=== PATIENT | female | born 1960 | race Caucasian/White ===

== ENCOUNTER → 2017-07-28 | Outpatient (REF) | payer OTHER | LOC: M LABNEURO 14:49 | PROVIDERS: ATTEND Psychiatry & Neurology Neurology | DX: R51 Headache (principal) ==

== ENCOUNTER → 2019-10-19 | Outpatient (REF) | payer OTHER | LOC: M LAB LCGH 12:57 | PROVIDERS: ATTEND Physician Assistant | DX: L82.1 Other seborrheic keratosis (principal) ==

== ENCOUNTER → 2021-09-15 | Outpatient (REF) | payer OTHER | LOC: M LAB REF 14:29 | PROVIDERS: ATTEND Physician Assistant | DX: L73.8 Other specified follicular disorders (principal) ==

== ENCOUNTER → 2021-12-20 | Outpatient (CLI) | payer OTHER ==
[~2021-12-20] MED LIST: MECL1TAB31 PO
== END ==
LOC: M LABSMTC 09:43
PROVIDERS: ATTEND Anesthesiology
DX: Z20.828 Contact with and (suspected) exposure to other viral communicable diseases (principal); Z11.59 Encounter for screening for other viral diseases

== ENCOUNTER 2021-12-25 08:21 | Day surgery (SDC) | payer OTHER ==
[~2021-12-25] VITALS: Ht 165.1 cm; Wt 88.4 kg
[~2021-12-25 08:21] MED LIST changes: +NS 1,000 ML IV ONE
[2021-12-25] MEDS ORDERED: propofoL 200 MG/20 ML VIAL As Ordered ONE ×2 (09:45→10:07)
[2021-12-25] MEDS ORDERED: LIDOCAINE 2% 100MG/5ML SDV (FOR ANES.) As Ordered ONE (09:45)
[2021-12-25 10:45] VITALS: BP 174/98
== END 2021-12-25 10:55 | disposition home or self-care (01) ==
LOC: M OPP 08:21
PROVIDERS: ATTEND Internal Medicine Gastroenterology
DX: Z12.11 Encounter for screening for malignant neoplasm of colon (principal); R10.13 Epigastric pain; K63.5 Polyp of colon; D13.0 Benign neoplasm of esophagus; D13.1 Benign neoplasm of stomach; K64.8 Other hemorrhoids; K21.00 Gastro-esophageal reflux disease with esophagitis, without bleeding; K29.70 Gastritis, unspecified, without bleeding; K76.9 Liver disease, unspecified; R42 Dizziness and giddiness; G43.909 Migraine, unspecified, not intractable, without status migrainosus; F41.9 Anxiety disorder, unspecified; Z86.73 Personal history of transient ischemic attack (TIA), and cerebral infarction without residual deficits; Z91.018 Allergy to other foods; Z79.899 Other long term (current) drug therapy; Z80.3 Family history of malignant neoplasm of breast; Z80.52 Family history of malignant neoplasm of bladder

== ENCOUNTER → 2022-12-07 | Outpatient (REF) | payer OTHER ==
[~2022-12-07] MED LIST changes: -NS 1,000 ML IV ONE
== END ==
LOC: M SFHCDERM 17:29
PROVIDERS: ATTEND Physician Assistant
DX: D18.01 Hemangioma of skin and subcutaneous tissue (principal)

== ENCOUNTER 2023-11-17 07:01 | Day surgery (SDC) | payer OTHER ==
[~2023-11-17] VITALS: Ht 165.1 cm; Wt 93.0 kg
[~2023-11-17 07:01] MED LIST changes: +MECL-209 PO; -MECL1TAB31 PO; +MV-M1TAB13 PO; +SUMA50TA2 PO; +TAMS1CAP17 PO
[2023-11-17] MEDS ORDERED: MIDAZOLAM INJ 2MG/2ML VIAL As Ordered ONE (08:17)
[2023-11-17] MEDS ORDERED: propofoL 200 MG/20 ML VIAL As Ordered ONE (08:17)
[2023-11-17] MEDS ORDERED: LIDOCAINE 2% 100MG/5ML SDV (FOR ANES.) As Ordered ONE (08:17)
[2023-11-17] MEDS ORDERED: ONDANSETRON 4MG 2ML VIAL As Ordered ONE (08:17)
[2023-11-17] MEDS ORDERED: fentaNYL 100 MCG/2 ML INJECTION As Ordered ONE (08:17)
[2023-11-17] MEDS ORDERED: dexmedeTOMIDine (4MCG/ML)200MCG/50ML BTL (PRECEDEX) As Ordered ONE (08:18)
[2023-11-17] MEDS ORDERED: LR 1,000 ML IV SCH ×2 (08:35→10:10)
[2023-11-17] MEDS ORDERED: ISOVUE-300 61% 100ML VIAL As Ordered ONE (08:47)
[2023-11-17] MEDS: ceFAZolin SOD 2 GM in IV 1 EA IV ONE (09:25)
[2023-11-17] MEDS ORDERED: LACRILUBE (AKWA TEARS) OPHTH OINT 3.5GM As Ordered ONE (09:40)
[2023-11-17] MEDS ORDERED: ACETAMINOPHEN 1000MG 100ML IV BAG As Ordered ONE (09:40)
[2023-11-17] MEDS ORDERED: LABETALOL 100MG/20ML VIAL As Ordered ONE (09:40)
[2023-11-17] MEDS ORDERED: fentaNYL 100 MCG/2 ML INJECTION IV PRN (10:10)
[2023-11-17] MEDS ORDERED: HYDROMORPHONE HCL 0.5 MG/ 0.5 ML SYRINGE IV PRN (10:10)
[2023-11-17] MEDS ORDERED: ONDANSETRON 4MG 2ML VIAL IV PRN (10:10)
[2023-11-17] MEDS ORDERED: oxyCODONE 5MG TAB PO PRN (10:10)
[2023-11-17] MEDS: PERCOCET 5MG/325MG TAB PO PRN (12:11)
[2023-11-17 12:30] VITALS: BP 148/86; TEMP 97; O2SAT 97
== END 2023-11-17 13:20 | disposition home or self-care (01) ==
LOC: M SDC 07:01
PROVIDERS: ATTEND Urology
DX: N13.2 Hydronephrosis with renal and ureteral calculous obstruction (principal); K76.0 Fatty (change of) liver, not elsewhere classified; Z90.710 Acquired absence of both cervix and uterus; Z86.73 Personal history of transient ischemic attack (TIA), and cerebral infarction without residual deficits; Z79.899 Other long term (current) drug therapy; G43.909 Migraine, unspecified, not intractable, without status migrainosus
CPT/HCPCS: 52332; 52351; 76000; 93005; C1769; C1894; C2617; J0131; J0690; J1100; J1920; J2250; J2405; J3010; Q9967